=== PATIENT | male | born 1955 ===

== ENCOUNTER 2023-02-11 14:56 | Outpatient (CLI) | payer MEDICARE, OTHER ==
[2023-02-11 15:25] LABS: CREATININE 0.6 mg/dL (0.6-1.2)
[2023-02-11] MEDS ORDERED: iohexoL-300 100 ML VIAL ONE (16:09)
[2023-02-11] MEDS ORDERED: iohexoL-300 100 ML VIAL IVP ONE (17:04)
--- NOTE | 2023-02-11 17:42 | CT Report ---
PROCEDURE: CHEST W INDICATIONS: TONGUE CA CONTRAST: 100ml Omnipaque 300 TECHNIQUE: After the administration of intravenous contrast, 1 mm axial images were acquired from the pulmonary apices through the posterior costophrenic angles. Axial 5 mm soft tissue kernel reconstructions were performed as well as 8 mm axial MIP and coronal and sagittal 5 mm reformations. For radiation dose reduction, the following was used: automated exposure control, adjustment of mA and/or kV according to patient size. COMPARISON: None. FINDINGS: Image quality: Excellent. Lungs and pleura: No pleural effusions. No pneumothorax. There is a right suprahilar soft tissue mas s abutting right posterior upper lobe bronchovascular structures measuring 2.1 x 2.5 x 2.0 cm. There is a tiny subpleural soft tissue nodule measuring 3 mm at the medial right lower lung, 3/217. No othe r suspicious lung nodules. No parenchymal consolidations, groundglass opacities, pleural effusions, o r pleural plaquing. Mediastinum: Heart size is normal. No pericardial effusions. No mediastinal adenopathy by size criter ia. No large vessel abnormality. Normal esophagus without hiatal hernia. Chest wall and lower neck: Thyroid is unremarkable. No axillary or supraclavicular adenopathy by size . Bones: Multilevel degenerative endplate changes. No suspicious bone lesions. Upper Abdomen: Unremarkable. IMPRESSION: 1. 2.5 cm soft tissue mass in the right upper lobe adjacent to the hilum. Correlate with prior imagin g. This is suspicious for metastatic disease in the setting of a known primary malignancy. 2. Tiny 3 mm right lower lung nodules nonspecific at this size. Continued surveillance is recommended . Reviewed by: Estefany Arango MD on 02/11/2023 5:41 PM PDT Approved by: Estefany Arango MD on 02/11/2023 5:41 PM PDT Station ID: [id number]
--- NOTE | 2023-02-11 17:51 | CT Report ---
PROCEDURE: MAXILLOFACIAL W INDICATIONS: TONGUE CA CONTRAST: 100ml Omnipaque 300 TECHNIQUE: After the administration of intravenous contrast, 3.0 mm axial sections acquired from the mid-neck to the frontal sinuses, with coronal reformatting. For radiation dose reduction, the following was use d: automated exposure control, adjustment of mA and/or kV according to patient size. COMPARISON: None. FINDINGS: Image quality: Excellent. Soft tissues: There may be slight diffuse soft tissue thickening of the soft palate. No definite enh ancing neoplasm at the tongue base or within the musculature is appreciated. No thickening of the jerad noid pad. No significant tonsillar enlargement. Paracentral fat planes are normally maintained. There is a soft tissue nodule in the right supra clavicular region immediately adjacent to the caroti d vasculature measuring 2.4 x 3.0 x 2.0 cm suspicious for an enlarged lymph node. No other adenopathy . No edema, masses, or fluid collections. The thyroid gland is partially imaged and imaged portions appear normal. Vascular: Visualized vascular structures appear patent throughout. Bony vascular foramina and canal s appear normal. Bones: Facial bones appear intact, without fractures, erosions, or destruction. Visualized portions of the skull base and auditory canals also appear normal. Sinuses: Small polyp or mucous retention cyst base of the left maxillary sinus. Paranasal sinuses ar e otherwise normally aerated without fluid levels, mucosal thickening, or mucoceles. Mastoid air makayla ls are aerated. IMPRESSION: 1. No visible tongue mass. 2. 3.0 cm right supraclavicular mass suspicious for pathologic adenopathy. Correlate with PET/CT if p reviously performed and consider tissue acquisition if not previously done. Reviewed by: Estefany Arango MD on 02/11/2023 5:49 PM PDT Approved by: Estefany Arango MD on 02/11/2023 5:49 PM PDT Station ID: [id number]
== END 2023-02-11 14:57 | disposition home or self-care (01) ==
LOC: LAB 14:56
PROVIDERS: ATTEND Otolaryngology Plastic Surgery within the Head & Neck
DX: C02.0 Malignant neoplasm of dorsal surface of tongue (principal); R91.8 Other nonspecific abnormal finding of lung field
CPT/HCPCS: 36415; 70487; 71260; 82565; Q9967

== ENCOUNTER 2023-03-01 13:16 | Outpatient (CLI) | payer MEDICARE, BC ==
[2023-03-01] MEDS ORDERED: ALBUTEROL 1 PUFF INH STA (15:44)
== END 2023-03-01 13:17 | disposition home or self-care (01) ==
LOC: RT 13:16
PROVIDERS: ATTEND Student in an Organized Health Care Education/Training Program
DX: R06.00 Dyspnea, unspecified (principal); Z87.09 Personal history of other diseases of the respiratory system
CPT/HCPCS: 94060

== ENCOUNTER 2023-03-23 01:20 | Outpatient (CLI) | payer MEDICARE, BC | END 2023-03-23 01:21 | disposition short-term general hospital (02) | LOC: EMS 01:20 | DX: R58 Hemorrhage, not elsewhere classified (principal) | CPT/HCPCS: A0425; A0427 ==